=== PATIENT | female | born 1950 | race Caucasian/White ===

== ENCOUNTER 2024-06-25 09:39 | Inpatient (IN) | payer MEDICARE, SELFPAY ==
[2024-06-25] VITALS (17 sets, daily range): BP systolic 115–137; BP diastolic 56–76; PULSE 65–82; RESP 16–22; TEMP 36.2–36.7; O2SAT 87–98; BMI 31.9; BMI 28.0
--- NOTE | 2024-06-25 09:48 | EX.ED.DYSGE1 ---
HPI History of Present Illness Chief Complaint: General Illness Detail of Chief Complaint: Has not felt well since Friday Informant: patient and family (Daughter is the primary informant.) Limited: other (Patient is pale appears ill and a poor informant) Onset/Context/Timing Onset: Days Context: Sudden Onset Timing: Continuous and Waxes and wanes Quality: Weakness, productive cough, rattling in her chest, decreased p.o. intake Location: Primarily respiratory Current Severity: Moderate Maximum Severity: Severe Worsened by: Nothing Relieved by: Nothing Associated Symptoms Associated Symptoms: Decreased urine output and not feeling Narrative Narrative: Patient is a 74-year-old woman. She is a poor informant. She has not seen a doctor in 5+ years. She is present no medication. She has no allergies. Her last visit was at an urgent care for COVID-19. She has had low-grade fever. She denies headache, visual, ocular auditory symptoms. She does endorse congestion, postnasal and sore throat. She does have a cough that is productive of thick green sputum. She has no history of asthma or COPD. She has never smoked. She denies abdominal pain, nausea, vomiting or diarrhea. She denies urologic symptoms i.e. dysuria, frequency, urgency or hematuria. Daughter reports decreased urine output. Patient was assisted to the bed because of weakness. She denies ill contacts. She denies any rash or skin lesions. Prior similar symptoms: No Recent Illness/Hospitalization: No PFSH PFSH Medical History no medical history no medical history Home Medications ?Medication ?Instructions ?Recorded ?Last Taken ?Type NK 06/25/24 Unknown History Allergy/AdvReac Type Severity Reaction Status Date / Time No Known Allergies Allergy Verified 04/03/23 07:56 Family History no significant family his Surgical History no surgical history Social History Smoking Status: Never smoker ROS ROS ED Constitutional Constitutional ED: Reports chills, fever(s), subjective and sweats Eyes Eyes: Denies blurry vision or change in vision ENT ENT ED: Reports rhinorrhea and sore throat; Denies ear pain Cardiovascular Cardiovascular: Denies chest pain, orthopnea, palpitations, paroxysmal nocturnal dyspnea or racing heartbeat Respiratory/Chest Respiratory/Chest: Reports cough, dyspnea, sputum and other Details: Rattling in her chest worse when she is supine. Specifically denied orthopnea. ; Denies dyspnea on exertion, orthopnea or paroxysmal nocturnal dyspnea Gastrointestinal Gastrointestinal: Denies abdominal pain, diarrhea, melena, nausea or vomiting Genitourinary Genitourinary ED: Denies dysuria, hematuria or urinary frequency Musculoskeletal Musculoskeletal: Reports arthralgias and myalgias Integumentary Denies rash Neurologic Neurologic: Reports weakness; Denies headache(s) or paresthesias Endocrine Endocrinology: Denies cold intolerance or heat intolerance Hematologic/Lymphatic Hematologic/Lymphatic: Reports systems reviewed and no addt'l complaints, except as documented EXAM Physical Exam Const Vital Signs: 06/25/24 09:39 06/25/24 09:46 06/25/24 10:03 Temperature 98 F Temperature Source Oral Pulse Rate 75 74 Respiratory Rate 20 H 16 Respiratory Effort Normal Respiratory Pattern Normal Normal Blood Pressure 137/76 H Blood Pressure Mean 96 Pulse Ox 93 Oxygen Delivery Method Room Air Oxygen Flow Rate (L/min) 06/25/24 10:40 06/25/24 11:02 06/25/24 11:38 Temperature Temperature Source Pulse Rate 65 Respiratory Rate 22 H Respiratory Effort Respiratory Pattern Blood Pressure 115/56 L Blood Pressure Mean 75 Pulse Ox 88 96 87 Oxygen Delivery Method Room Air Room Air Oxygen Flow Rate (L/min) 06/25/24 11:38 06/25/24 11:53 06/25/24 13:04 Temperature Temperature Source Pulse Rate 82 Respiratory Rate 16 Respiratory Effort Respiratory Pattern Blood Pressure 132/65 H Blood Pressure Mean 87 Pulse Ox 93 97 96 Oxygen Delivery Method Nasal Cannula Nasal Cannula Nasal Cannula Oxygen Flow Rate (L/min) 2 2 2 06/25/24 13:22 Temperature Temperature Source Pulse Rate 80 Respiratory Rate 16 Respiratory Effort Respiratory Pattern Blood Pressure 135/59 H Blood Pressure Mean 84 Pulse Ox 97 Oxygen Delivery Method Nasal Cannula Oxygen Flow Rate (L/min) 2 Positive well nourished and well developed Constitutional Narrative: Patient appears ill. She is pale. Skin is diaphoretic. It is raining outside. General Appearance ED: well developed and pallor HEENT Reports dry mucous membranes HEENT Narrative: Head is atraumatic, cephalic. Ears normal. Nares patent. There is clear discharge. Posterior pharynx is normal. Uvula is midline. There is no deviation of protrusion. Mouth ED: Yes dry mucous membranes Mouth: dry mucous membranes Eyes PERRL and EOMs intact bilaterally General Eye ED: Negative for pale conjunctiva or scleral icterus Neck no lymphadenopathy, supple and no JVD Neck Narrative: Trachea is midline. There is no cervical lymphadenopathy. There is no stridor. Chest Wall palpation of chest normal Resp normal respiratory effort and No clear to auscultation bilaterally Auscultation: rales bilateral lower (Right greater than left. There is egophony bilaterally.) Cardio regular rate, regular rhythm, S1 normal heart sound, S2 normal heart sound and no murmurs GI normal to inspection, nondistended, normoactive bowel sounds, non-tender, non-distended and no masses; Negative for hepatosplenomegaly Auscultation: hypoactive bowel sounds Palpation: soft Back/Spine no CVA tenderness Extremity normal to inspection General Extremety ED: Negative for edema or tenderness General Extremity: Negative for edema Neuro oriented x3, CN's II-XII intact bilaterally and no sensory deficits noted Neuro Narrative: Patient is awake. Sensorium / Orientation: Negative for alert Motor Exam: strength 5/5 throughout Psych mental status grossly normal Skin no rashes or lesions noted, no wounds and skin turgor normal General Skin Exam: pallor; Negative for jaundice MDM MDM MDM Narrative Medical decision making narrative: Differential diagnosis would include viral upper respiratory infection with bronchospasm, clinically patient has pneumonia, clinically she is dehydrated. Will obtain appropriate blood work to assess for endorgan dysfunction, chest x-ray to determine if she does have pneumonia or not radiologically. Since she clinically appears dehydrated and daughter reports poor p.o. intake with decreased urine output 1 L of normal saline was ordered. Because of the rhonchi and wheezing noted albuterol was ordered. There are no old records for review. The only record available is for a urgent care visit. She was diagnosed at that time with COVID-19. History & Record Review Additional record(s) reviewed:: Prior outpatient record (Diagnosed with COVID-21 April 2023 at urgent care.) and No prior records (There are no old records since patient does not go to the doctor) Lab Data Attestation: I reviewed the patient's lab results. Lab results narrative: CBC is unremarkable. Competence of metabolic panel is remarkable for hyponatremia and hypochloremia. Patient's CO2 is normal with an elevated anion gap. Lactate is upper end of normal. BUN to creatinine ratio is elevated at 21-1. Glucose is elevated to 98. Since patient is on no medication with hyponatremia we will obtain urine osmolarity and serum osmolarity as well as TSH and cortisol level. Labs: Laboratory Results - last 24 hr 06/25/24 06/25/24 09:51 09:57 WBC 4.6 RBC 4.73 Hgb 14.4 Hct 41.3 MCV 87.3 MCH 30.4 MCHC 34.9 RDW Std Deviation 38.6 RDW Coeff of Black 12.0 Plt Count 131 L MPV 12.5 H Immature Gran % (Auto) 0.400 Neut % (Auto) 57.9 Lymph % (Auto) 26.9 [place] % (Auto) 13.9 H Eos % (Auto) 0.2 Baso % (Auto) 0.7 Absolute Neuts (auto) 2.7 Absolute Lymphs (auto) 1.24 Nucleated RBC % 0 Sodium 129 L Potassium 3.7 Chloride 90 L Carbon Dioxide 22.5 Anion Gap 16 H BUN 16 Creatinine 0.75 Estim Creat Clear Calc 71.75 Est GFR (MDRD) Non-Af 85 BUN/Creatinine Ratio 21.4 H Glucose 298 H Lactic Acid 2.0 Calcium 9.6 Total Bilirubin 0.76 AST 41 H ALT 35 Alkaline Phosphatase 89 Total Protein 7.2 Albumin 4.1 Globulin 3.1 Albumin/Globulin Ratio 1.3 Radiography Chest X-Ray - ED: 2 View and Read by ED Physician (Cardiac silhouette and size normal. There is no infiltrate, effusion noted. There is no evidence of heart failure. Hilum is unremarkable. Osseous structures reveal chronic changes.) Diagnostic Testing: Clinical Impression(s) from Imaging Studies Chest X-Ray 06/25/24 10:15 IMPRESSION: NO ACUTE FINDINGS. Reading Location: [facility]- Management Discussion w/another healthcare provider: Hospitalist (Spoke with hospitalist, Dr. Rosa Maria Bell. She will see the patient in the emergency room. Full admit MedSurg. Clinically patient has pneumonia. She reviewed my orders and note. Plan is full admission.) Treatment and Re-Evaluation :: Oxygen was discontinued. Patient's pulse ox went to 87% on room air. On reexamination she has more rhonchi and wheezing noted. Additional aerosol treatments were ordered as well as prednisone. (2285) Comments:: Oxygen was removed prior to ambulation. Was 89%. Nurses put her back on the oxygen and then ambulated to her. She did not desaturate with oxygen. Since patient is still wheezing is hypoxic will call hospitalist for admission. Since she does have a productive cough and does not meet criteria for sepsis we will treat with oral antibiotics. Will order doxycycline which will cover both typical and atypical organisms. Discharge Plan Triage Chief Complaint: General Illness ED Provider: Jett Quispe Dx/Rx/DC Orders Clinical Impression: Pneumonia, Acute bronchospasm, Acute hyponatremia, Elevated blood-pressure reading without diagnosis of hypertension Prescriptions: No Action NK Primary Care Provider: Care Physician,No Primary Referrals: Care Physician,No Primary [Primary Care Provider] - Print Language: Telugu Disposition Disposition: Acute Care [facility]
[2024-06-25] MEDS: Albuterol 2.5 MG/3 ML VIAL.NEB. INHALATION ×4 (10:04→11:51)
[2024-06-25 10:10] LABS: Absolute Lymphocyte Count 1.24 X10^3/uL (0.83-4.51); Absolute Neutrophil Count 2.7 X10^3/uL (2.0-7.7); Basophil# 0.03 X10^3/uL; Basophil% 0.7 % (0-1); Eosinophil# 0.01 X10^3/uL; Eosinophils% 0.2 % (0-5); Hematocrit 41.3 % (37-47); Hemoglobin 14.4 g/dL (12.0-15.0); Lymphocyte # 1.24 X10^3/ul (0.83-4.51); Lymphocyte % 26.9 % (19-41); Mean Corp Hgb Conc 34.9 g/dL (32-36); Mean Corpuscular Hgb 30.4 pg (27.0-32.0); Mean Corpuscular Volume 87.3 fL (81-99); Mean Platelet Vol. 12.5 fl (6.2-12.0); Monocyte# 0.64 X10^3/uL; Monocyte% 13.9 % (0-10); NRBC Flagged by Analyzer 0 % (0-5); Neutrophil # 2.67 X10^3/uL (2.7-7.7); Neutrophil % 57.9 % (47-70); Platelet Count 131 K/mm3 (150-450); RBC Distribution Width SD 38.6 fl (35.1-43.9); Red Blood Count 4.73 M/mm3 (4.2-5.4); White Blood Count 4.6 K/mm3 (4.4-11.0)
--- NOTE | 2024-06-25 10:15 | RAD_ITS ---
PROCEDURE: CHEST PA AND LATERAL 06/25/2024 REASON FOR EXAM: PRODUCTIVE COUGH, RALES RIGHT GREATER THAN LEFT, E TECHNIQUE: Frontal and lateral views of the chest. COMPARISON: None FINDINGS: Hardware: EKG electrodes are seen. Heart: The heart size is normal. Mediastinum: The mediastinal contour is unremarkable. Lungs: The lungs are clear. Bones: The bones are unremarkable. RAD/Chest PA and Lateral IMPRESSION: NO ACUTE FINDINGS. Reading Location: [place] [id number]
[2024-06-25 10:33] LABS: ALB/GLOB Ratio 1.3 RATIO (0.9-2.4); AST(SGOT) 41 U/L (<=31); Alanine Aminotransfer ALT/SGPT 35 U/L (<=34); Albumin, Serum 4.1 g/dL (3.4-4.8); Alkaline Phosphatase 89 U/L (35-104); Anion Gap 16 (5-15); BUN 16 mg/dL (4-19); BUN/Creat Ratio 21.4 RATIO (10-20); Calcium,Total 9.6 mg/dL (7.6-11.0); Carbon Dioxide 22.5 mmol/L (21.0-32.0); Chloride 90 mmol/L (98-108); Creatinine, Serum 0.75 mg/dL (0.70-1.20); EST Glomerular Filtration Rate 85 (>60); Estimated Creatinine Clearance 71.75 ml/min (50-250); Globulin 3.1 g/dL (2.2-4.2); Glucose 298 mg/dL (70-99); Potassium 3.7 mmol/L (3.3-5.1); Protein, Total 7.2 g/dL (5.9-8.4); Sodium Level 129 mmol/L (133-145); Total Bilirubin 0.76 mg/dL (0.00-1.30)
[2024-06-25] MEDS: 0.9% Normal Saline (1000mL) 1,000 ML 1000 ML IV (11:09)
--- NOTE | 2024-06-25 11:20 | CM.ED ---
Social work Reason for referral: no PCP Referral source: case find This SW identified patient's lack of a PCP and need for resources. This SW entered patient's room, introducing self and role at [facility]. Patient was observed being asleep in bed, but patient's daughter, Mariana, was bedside. Mariana reported patient not going to a doctor due to being stubborn and Mariana stated knowing patient would need to come to the ED today when it took an hour for Mariana to help patient shower, get dressed, and get to Mariana's car. Mariaan stated patient is a hard worker and not many things get her down. Mariana accepted resources of [facility] Provider Directory and [facility] information on patient's behalf. No further needs identified at this time. Deana Mills, NUCLEAR WASTE MANAGEMENT ENGINEER, [employer] SAL[employer]ATE
[2024-06-25] MEDS: predniSONE 20 MG Tablet 60 MG PO (11:48)
[2024-06-25] MEDS: Doxycycline 100 MG CAPSULE PO ×2 (13:33→22:06)
--- NOTE | 2024-06-25 13:44 | HP.PCM.HOS_ITS ---
HPI - General General Date of Admission: 06/25/24 Date of Service: 06/25/24 Chief Complaint: Cough, generalized weakness HPI Narrative ILIA CLAUDIO, is a 74-year-old female presented to [facility] ED 06/25/2024 due to weakness, productive cough, decreased p.o. intake since Friday. Patient takes no medications and has not seen a doctor in over 5 years. Reports cough with thick green sputum and daughter reports decreased urine output. Patient noted to be 88% on room air in the ED and was placed on 2 L nasal cannula. Patient otherwise vitally stable. CBC unremarkable and CMP with sodium of 129 and chloride of 90 as well as a glucose of 298. Chest x-ray with no acute process however patient clinically with pneumonia. Attempt was made to take patient off of oxygen she dropped to 87% so oxygen was replaced and she was given a DuoNeb treatment and prednisone as well as doxycycline. Hospitalist contacted for admission. Patient evaluated at bedside with daughter present. Patient and daughter report that on Friday she was just kind of generally not feeling well and then on Friday she felt very achy and weak and pretty much stayed in bed and has remained in bed for the past 3 days because she is so achy and weak, today she has been having productive cough, does not necessarily note shortness of breath but has also not been up and moving around much, poor p.o. intake, denies any nausea or belly pain, no diarrhea or changes in urination. No chest pain. No temperatures above 99.4 at home. PFSH Medical History no medical history Home Medications ?Medication ?Instructions ?Recorded ?Last Taken ?Type NK 06/25/24 Unknown History Allergy/AdvReac Type Severity Reaction Status Date / Time No Known Allergies Allergy Verified 04/03/23 07:56 Family History no significant family his Surgical History no surgical history Social History Smoking Status: Never smoker ROS ROS Narrative General: Highest temp 99.4, generally achy and weak HENT: Denies headache, denies stuffy nose, denies sore throat EYES: Denies changes in vision Resp: Productive cough x 1 day, denies shortness of breath Cardiac: Denies chest pain GI: Denies abdominal pain, denies changes in bowel, denies nausea/vomiting : Denies changes in urination Extremity: Denies swelling MSK: Generalized weakness Neuro: Denies any numbness/tingling Heme: Denies any bleeding or bruising Skin: Denies rashes Psychiatric: No complaints voiced Vital Signs Vital Signs Vital Signs: 06/25/24 09:39 06/25/24 09:46 06/25/24 10:03 Temperature 98 F Temperature Source Oral Pulse Rate 75 74 Respiratory Rate 20 H 16 Respiratory Effort Normal Respiratory Pattern Normal Normal Blood Pressure 137/76 H Blood Pressure Mean 96 Pulse Ox 93 Oxygen Delivery Method Room Air Oxygen Flow Rate (L/min) 06/25/24 10:40 06/25/24 11:02 06/25/24 11:38 Temperature Temperature Source Pulse Rate 65 Respiratory Rate 22 H Respiratory Effort Respiratory Pattern Blood Pressure 115/56 L Blood Pressure Mean 75 Pulse Ox 88 96 87 Oxygen Delivery Method Room Air Room Air Oxygen Flow Rate (L/min) 06/25/24 11:38 06/25/24 11:53 06/25/24 13:04 Temperature Temperature Source Pulse Rate 82 Respiratory Rate 16 Respiratory Effort Respiratory Pattern Blood Pressure 132/65 H Blood Pressure Mean 87 Pulse Ox 93 97 96 Oxygen Delivery Method Nasal Cannula Nasal Cannula Nasal Cannula Oxygen Flow Rate (L/min) 2 2 2 06/25/24 13:22 06/25/24 13:35 Temperature 98.1 F Temperature Source Pulse Rate 80 75 Respiratory Rate 16 16 Respiratory Effort Respiratory Pattern Blood Pressure 135/59 H 135/59 H Blood Pressure Mean 84 84 Pulse Ox 97 95 Oxygen Delivery Method Nasal Cannula Oxygen Flow Rate (L/min) 2 Weight Weight: 89.811 kg Body Mass Index (BMI) 31.9 Physical Exam Narrative General: Alert, oriented, no apparent distress HEENT: Atraumatic, normocephalic Eyes: Anicteric, normal conjunctiva, extraocular movements grossly intact Neck: Supple Respiratory: Patient coarse bilaterally much more prominent on left side compared to right, normal respiratory effort Cardiovascular: Regular rate and rhythm GI: Soft, nontender, nondistended Extremities: No edema Musculoskeletal: Moving all extremities Neuro: No overt focal neurological deficits Skin: No rashes appreciated Psych: Cooperative Results Lab / Micro Data 06/25/24 09:51 06/25/24 09:51 Labs: Laboratory Results - last 24 hr 06/25/24 09:51: WBC 4.6, RBC 4.73, Hgb 14.4, Hct 41.3, MCV 87.3, MCH 30.4, MCHC 34.9, RDW Std Deviation 38.6, RDW Coeff of Black 12.0, Plt Count 131 L, MPV 12.5 H , Immature Gran % (Auto) 0.400, Neut % (Auto) 57.9, Lymph % (Auto) 26.9, [place] % (Auto) 13.9 H, Eos % (Auto) 0.2, Baso % (Auto) 0.7, Absolute Neuts (auto) 2.7, Absolute Lymphs (auto) 1.24, Nucleated RBC % 0, Sodium 129 L, Potassium 3.7, C hloride 90 L, Carbon Dioxide 22.5, Anion Gap 16 H, BUN 16, Creatinine 0.75, Estim Creat Clear Calc 71.75, Est GFR (MDRD) Non-Af 85, BUN/Creatinine Ratio 21.4 H, Glucose 298 H, Calcium 9.6, Total Bilirubin 0.76, AST 41 H, ALT 35, Alkaline Phosphatase 89, Total Protein 7.2, Albumin 4.1, Globulin 3.1, Albumin/Globulin Ratio 1.3 06/25/24 09:57: Lactic Acid 2.0, TSH 2.490, Cortisol AM Sample 51.90 H Micro: Microbiology 06/25/24 09:57 Mucosa - Nose SARS-CoV-2, Influenza & RSV (PCR) - Final Imaging Radiology Impression Chest X-Ray 06/25/24 10:15 IMPRESSION: NO ACUTE FINDINGS. Reading Location: [facility] Assessment & Plan Assessment/Plan (1) Acute bronchospasm: PLAN: Plan # Hypoxia secondary to bronchospasm with acute bronchitis -Patient hypoxic on presentation down to 88 and 87% requiring O2 -Patient has no history of COPD or smoking that would suggest this is a COPD exacerbation - Chest x-ray read with no acute process but patient does have significant cough with purulent sputum and wheezes and rhonchi on exam -DuoNebs and as needed albuterol -Sputum culture if able, COVID negative, respiratory panel ordered -Robitussin as needed, I/S - Doxycycline was started in the ED due to patient's significant cough and hypoxia, will continue at this time # hyponatremia and hypochloremia - patient clinically dehydrated and has had very poor p.o. intake and generalized weakness, suspect the above is due to dehydration - IV fluids - if no improvement may need further workup # hyperglycemia - no known history of diabetes that she is aware of -Consistent carb?calorie controlled diet - glucose checks and sliding scale insulin - A1c in a.m. #DVT ppx: Lovenox subcu Rosa Maria Bell MD Charges/Coding Visit Charges Inpatient E&M: 21776 Init Hosp L2
[2024-06-25 14:00] LABS: Reflex Lactate? Y
[2024-06-25 14:19] LABS: Osmolality, Urine 793 mOsm/KG
[2024-06-25 14:19] LABS: Osmolality, Serum 292 mOsm/KG (280-301)
[2024-06-25 14:49] LABS: Lactic Acid 2.4 mmol/L (0.0-2.0)
--- NOTE | 2024-06-25 14:49 | NURSING ---
NOTED OF LAB CALL OF LACTIC ACID OF 2.4
[2024-06-25] MEDS: 0.9% Normal Saline (500mL Bag) 500 ML 999 ML IV (15:21)
[2024-06-25] MEDS: 0.9% Normal Saline (1000mL) 1,000 ML 75 ML IV (16:31)
[2024-06-25] MEDS: Insulin Lispro 100 UNIT/ML INSULN.PEN SC ×2 (16:44→22:06)
[2024-06-25 16:59] LABS: Bedside Glucose 265 mg/dL (74-106)
[2024-06-25] MEDS: Ipratropium/Albuterol Sulfate 3 ML AMPUL.NEB INHALATION (19:20)
[2024-06-25 23:26] LABS: Bedside Glucose 293 mg/dL (74-106)
[2024-06-26] VITALS (8 sets, daily range): BP systolic 116–143; BP diastolic 56–78; PULSE 64–88; RESP 16–18; TEMP 36.4–36.8; O2SAT 95–99
[2024-06-26 04:23] LABS: Absolute Lymphocyte Count 1.01 X10^3/uL (0.83-4.51); Absolute Neutrophil Count 3.6 X10^3/uL (2.0-7.7); Basophil# 0.01 X10^3/uL; Basophil% 0.2 % (0-1); Hematocrit 35.6 % (37-47); Hemoglobin 12.5 g/dL (12.0-15.0); Lymphocyte # 1.01 X10^3/ul (0.83-4.51); Lymphocyte % 20.3 % (19-41); Mean Corp Hgb Conc 35.1 g/dL (32-36); Mean Corpuscular Hgb 29.9 pg (27.0-32.0); Mean Corpuscular Volume 85.2 fL (81-99); Mean Platelet Vol. 12.5 fl (6.2-12.0); Monocyte# 0.36 X10^3/uL; Monocyte% 7.2 % (0-10); NRBC Flagged by Analyzer 0 % (0-5); Neutrophil # 3.58 X10^3/uL (2.7-7.7); Neutrophil % 71.9 % (47-70); Platelet Count 131 K/mm3 (150-450); RBC Distribution Width SD 37.1 fl (35.1-43.9); Red Blood Count 4.18 M/mm3 (4.2-5.4)
[2024-06-26 05:28] LABS: Anion Gap 14 (5-15); BUN 15 mg/dL (4-19); BUN/Creat Ratio 30.4 RATIO (10-20); Calcium,Total 9.4 mg/dL (7.6-11.0); Carbon Dioxide 21.1 mmol/L (21.0-32.0); Chloride 99 mmol/L (98-108); Creatinine, Serum 0.49 mg/dL (0.70-1.20); EST Glomerular Filtration Rate 100 (>60); Estimated Creatinine Clearance 67.33 ml/min (50-250); Glucose 248 mg/dL (70-99); Potassium 3.7 mmol/L (3.3-5.1); Sodium Level 135 mmol/L (133-145)
[2024-06-26] MEDS: Insulin Lispro 100 UNIT/ML INSULN.PEN SC ×4 (06:45→22:16)
[2024-06-26 07:06] LABS: Bedside Glucose 237 mg/dL (74-106)
[2024-06-26] MEDS: Ipratropium/Albuterol Sulfate 3 ML AMPUL.NEB INHALATION ×2 (07:19→13:07)
--- NOTE | 2024-06-26 07:31 | PCM.PN.HOSP ---
Reason for Visit Reason for Visit: Cough/generalized weakness Subjective Subjective Patient states overall she is feeling better. We discussed her findings with regards to her hemoglobin A1c and her being diabetic. She does state that she has a family members with diabetes in her grandparents. There is no awareness if her parents were diabetic or not. She is somewhat familiar with diabetes as her is diabetic. We did discuss in general terms diet and exercise as well as her need for insulin use at home. Nursing is to instruct patient insulin use. I did inform the patient the dietitian will be in to further discuss. While the patient was a lifelong non-smoker she had considerable secondhand smoke exposure. Objective Data Objective Data Vital Signs: Vital Signs Temp Pulse Resp BP Pulse Ox O2 Del Method O2 Flow Rate 97.5 F L 68 18 116/71 99 Nasal Cannula 2 06/26/24 02:30 06/26/24 07:20 06/26/24 07:20 06/26/24 02:30 06/26/24 07:20 06/26/24 07:20 06/26/24 02:30 FiO2 1 06/26/24 07:20 Oxygen Flow Rate (L/min) 2 Oxygen Delivery Method Nasal Cannula Weight: 78.8 kg Body Mass Index (BMI) 28.0 Intake & Output: Intake and Output for Last 24 Hours 06/24/24 06/25/24 06/26/24 23:59 23:59 23:59 Intake Total 1500 / 1500 1000 / 1000 Balance 1500 / 1500 1000 / 1000 Lab / Micro Data 06/26/24 04:06 06/26/24 04:06 Labs: Laboratory Results - last 24 hr 06/25/24 09:51: WBC 4.6, RBC 4.73, Hgb 14.4, Hct 41.3, MCV 87.3, MCH 30.4, MCHC 34.9, RDW Std Deviation 38.6, RDW Coeff of Black 12.0, Plt Count 131 L, MPV 12.5 H, Immature Gran % (Auto) 0.400, Neut % (Auto) 57.9, Lymph % (Auto) 26.9, [place] % (Auto) 13.9 H, Eos % (Auto) 0.2, Baso % (Auto) 0.7, Absolute Neuts (auto) 2.7, Absolute Lymphs (auto) 1.24, Nucleated RBC % 0, Sodium 129 L, Potassium 3.7, Chloride 90 L, Carbon Dioxide 22.5, Anion Gap 16 H, BUN 16, Creatinine 0.75, Estim Creat Clear Calc 71.75, Est GFR (MDRD) Non-Af 85, BUN/Creatinine Ratio 21.4 H, Glucose 298 H, Calcium 9.6, Total Bilirubin 0.76, AST 41 H, ALT 35, Alkaline Phosphatase 89, Total Protein 7.2, Albumin 4.1, Globulin 3.1, Albumin/Globulin Ratio 1.3 06/25/24 09:57: Lactic Acid 2.0, TSH 2.490, Cortisol AM Sample 51.90 H 06/25/24 13:04: Serum Osmolality 292 06/25/24 13:05: Urine Osmolality 793 06/25/24 14:10: Lactic Acid 2.4 H* 06/25/24 16:33: POC Glucose 265 H 06/25/24 22:04: POC Glucose 293 H 06/26/24 04:06: WBC 5.0, RBC 4.18 L, Hgb 12.5, Hct 35.6 L, MCV 85.2, MCH 29.9, MCHC 35.1, RDW Std Deviation 37.1, RDW Coeff of Black 12.0, Plt Count 131 L, MPV 12.5 H, Immature Gran % (Auto) 0.400, Neut % (Auto) 71.9 H, Lymph % (Auto) 20.3, [place] % (Auto) 7.2, Eos % (Auto) 0.0, Baso % (Auto) 0.2, Absolute Neuts (auto) 3.6, Absolute Lymphs (auto) 1.01, Nucleated RBC % 0, Sodium 135, Potassium 3.7, Chloride 99, Carbon Dioxide 21.1, Anion Gap 14, BUN 15, Creatinine 0.49 L, Estim Creat Clear Calc 67.33, Est GFR (MDRD) Non-Af 100, BUN/Creatinine Ratio 30.4 H, Glucose 248 H, Calcium 9.4 06/26/24 06:44: POC Glucose 237 H Micro: Microbiology 06/25/24 17:09 Mucosa - Nasopharyngeal Respiratory Panel (PCR) - Final Influenzae B Parainfluenza 3 06/25/24 09:57 Mucosa - Nose SARS-CoV-2, Influenza & RSV (PCR) - Final Radiography Diagnostic Testing: Radiology Impression Chest X-Ray 06/25/24 10:15 IMPRESSION: NO ACUTE FINDINGS. Reading Location: [facility] Physical Exam Const alert, oriented x3, no apparent distress and well nourished; Negative for average body habitus Constitutional Narrative: Overweight, older, white female, sitting up in bed, daughter at bedside, patient appears comfortable and nontoxic HEENT head/scalp atraumatic, moist oral mucous membranes and oropharynx normal HEENT Narrative: Mallampati 2-3, no thrush Eyes EOMs intact bilaterally and conjunctivae normal Eyes Narrative: No scleral icterus Neck supple Neck Narrative: Trachea midline Resp normal respiratory effort and no retractions Resp Narrative: Scattered faint coarse breath sounds with few scattered and expiratory wheezes Cardio regular rate, regular rhythm, S1 normal heart sound, S2 normal heart sound, no murmurs, no rub, no gallops and no clicks GI normal to inspection, nondistended, normoactive bowel sounds, soft to palpation and non-tender Extremity no clubbing, cyanosis or edema Extremity Narrative: Pedal and radial pulses are 2+ Skin skin turgor normal, no jaundice, no petechiae and no mottling Neuro oriented x3, moves all extremities and no focal motor deficits Psych affect normal Psych Narrative: Very pleasant, eye contact is good and patient interacts appropriately Assessment & Plan Assessment/Plan (1) Acute hyponatremia: (2) Hypoxia: (3) Diabetes mellitus, type 2: (4) Viral pneumonia: (5) Influenza B: (6) Parainfluenza infection: (7) Lactic acidosis: (8) Hyperglycemia: PLAN: Plan Acute hypoxia secondary to influenza B/parainfluenza 3 viral pneumonia - Will discontinue antibiotics now that viral panel is positive - Start Mucinex 1200 p.o. twice daily - Continue scheduled and as needed nebulizers - Continue oral prednisone - Continue antitussives - Continue spirometry - Add Pep therapy - Sputum culture ordered if patient able to produce - Current oxygen saturations are 99% on 1 L nasal cannula - Will need to check ambulatory pulse ox prior to discharge - Depending on how she does clinically throughout the day today could consider discharge home tomorrow Acute hyponatremia/hypochloremia - Resolved New diagnosis of DM-2 - Patient appears to be diabetic -Hemoglobin A1c was 11.2 and she is on no medications - Will add Lantus 15 units daily - Continue sliding scale but changed to high-dose - Consult for diabetic education - Continue carb controlled diet - Accu-Cheks as ordered - Will likely start metformin at discharge - Recommend referral to endocrinology at discharge - If blood pressure will tolerate will add low-dose SADE inhibitor for renal protection Lactic acidosis - Suspect related to #1 and dehydration - No further workup needed at this time Elevated cortisol level - Unclear what this means given the fact she is acutely ill - Would recommend outpatient follow-up as she may have hypercortisolism - Will refer to endocrinology at discharge DVT prophylaxis - Continue enoxaparin as ordered CODE STATUS - Full code Charges/Coding Visit Charges Inpatient E&M: 28525 Subs Hosp L3
[2024-06-26 07:33] LABS: Hemoglobin A1c 11.2 % (<=5.6)
[2024-06-26] MEDS: predniSONE 20 MG Tablet 40 MG PO (09:20)
[2024-06-26] MEDS: Enoxaparin 40 MG/0.4 ML Syringe SC (09:21)
[2024-06-26] MEDS: Insulin Glargine-YFGN 100 UNIT/ML Pen 15 UNIT SC (09:21)
[2024-06-26] MEDS: guaiFENesin 1,200 MG Tablet 1200 MG PO ×2 (09:22→22:22)
--- NOTE | 2024-06-26 11:30 | CASEMGMT ---
RN CM Face to Face with patient for initial transition planning/care coordination assessment. RN CM introduced self and role at [facility]. Patient sitting in chair, alert and oriented. Patient willing to participate in assessment and is able to answer all questions appropriately. Care providers, pharmacy, and demographics verified. Strata: 1 PCP: No PCP, list provided in ED Specialists: none Preferred Pharmacy: [facility] Insurance: [facility] Prescription Benefit: yes Living Will/HPOA: yes, daughter Mariana Galeana LNOK: , son, daughter Living Arrangements: Patient lives with and son in 2 story home. Patient is independent and able to ambulate stairs. Transportation: self, DME/HHC: Patient has access to walker at home. Will need glucometer at discharge. Script on chart to be provided at discharge. Patient wishes to discharge home, denies need for home health at this time. Patient states she has no further needs or concerns at this time. CM to follow for discharge planning needs that may arise. Disposition Plan: Patient to discharge home with family support and follow-up plans in place. Mirlande COLLINS, RN, CM
[2024-06-26 11:48] LABS: Bedside Glucose 212 mg/dL (74-106)
[2024-06-26 17:01] LABS: Bedside Glucose 282 mg/dL (74-106)
[2024-06-26] MEDS: 0.9% Saline Lock 10 ML Syringe IV (22:15)
[2024-06-26 22:56] LABS: Bedside Glucose 300 mg/dL (74-106)
[2024-06-27 02:08] VITALS: BP 134/79; PULSE 63; RESP 16; TEMP 36.8; O2SAT 94
[2024-06-27] MEDS: Insulin Lispro 100 UNIT/ML INSULN.PEN SC ×2 (06:27→10:42)
[2024-06-27] MEDS: Ipratropium/Albuterol Sulfate 3 ML AMPUL.NEB INHALATION (06:32)
[2024-06-27 06:33] VITALS: PULSE 65; RESP 16; O2SAT 99
[2024-06-27 06:47] LABS: Bedside Glucose 173 mg/dL (74-106)
--- NOTE | 2024-06-27 06:58 | DS.PCM_ITS ---
Providers Date of Admission: 06/25/24 Date of Discharge: 06/27/24 Primary Care Physician: No Primary Care Phys Reason For Visit: HYPOXIA AND PRODUCTIVE COUGH Diagnosis Discharge Diagnosis (1) Acute hyponatremia: Status: Acute Code(s): E87.1 - Hypo-osmolality and hyponatremia (2) Hypoxia: Status: Acute Code(s): R09.02 - Hypoxemia (3) Diabetes mellitus, type 2: Status: Acute Code(s): E11.9 - Type 2 diabetes mellitus without complications (4) Viral pneumonia: Status: Acute Code(s): J12.9 - Viral pneumonia, unspecified (5) Influenza B: Status: Acute Code(s): J10.1 - Influenza due to other identified influenza virus with other respiratory manifestations (6) Parainfluenza infection: Status: Acute Code(s): B34.8 - Other viral infections of unspecified site (7) Lactic acidosis: Status: Acute Code(s): E87.20 - Acidosis, unspecified (8) Hyperglycemia: Status: Acute Code(s): R73.9 - Hyperglycemia, unspecified Medications at Discharge Home Medications insulin glargine-yfgn 100 unit/mL (3 mL) subcutaneous pen 15 unit (0.15 mL) subcut DAILY #15 mL 06/27/24 lisinopril 5 mg tablet 5 mg PO DAILY #30 tabs 06/27/24 metformin 1,000 mg tablet 1,000 mg PO BIDCM #60 tabs 06/27/24 pen needle, diabetic 31 gauge x 1/4 #100 ea 06/27/24 prednisone 20 mg tablet 40 mg (2 x 20 mg) PO BREAKFAST #6 tabs 06/27/24 Hospital Course Operations None Procedures EKG and - (Chest x-ray) Summary of Care Provided Minutes Spent on Discharge: 38 Hospital Course: Ms. Galeana is a 74-year-old white female who presented to the emergency department [facility] on 06/25/2024 with a chief complaint of cough and generalized weakness. Patient reported that she had generalized weakness and a productive cough with thick green sputum production. Her daughter also reported she had decreased urinary output. Oxygen saturations on presentation were 80%. She denies any fever or chills. She has not seen a doctor in over 5 years and takes no medications at baseline. Patient daughter reported that on Friday she was just generally not feeling well and then Friday she felt very achy and weak and pretty much stayed in bed all day. She had remained there for the past 3 days prior to presentation because of achiness and weakness and then began having a productive cough. She did not notice any specific shortness of breath but had also not been up moving around much. P.o. intake has been poor. Tmax at home was 99.4. Vital signs on presentation showed temperature of 98, respiratory 75, pulse ox was 20, blood pressure was 137/76 and pulse ox was 93% on room air. CBC on presentation was unremarkable other than thrombocytopenia with a platelet count of 131,000 that was stable throughout her stay. She had no left shift but did have a monocytosis at 13.9%. Chemistry panel showed hyponatremia with a sodium of 129 and this corrected within 24 hours of admission. At discharge it was 139. Utilized was 16 and serum creatinine is normal at 0.75. Blood glucose was found to be 298 patient denies history of diabetes. Lactic acid was 2 and liver functions were normal. TSH was within normal limits. Chest x-ray was unremarkable. EKG showed no acute changes consistent with acute ischemia. Respiratory viral panel was obtained and she tested positive for influenza B and parainfluenza type III. Unclear if she has both viruses or that the influenza B was cross-reactive for the parainfluenza because her rapid COVID/flu/RSV was not positive. An a.m. cortisol was obtained and found to be 51.9. The significance of this is unclear if she was ill at the time it was drawn. It was a random sample done in the a.m. Outpatient follow-up will be required. Given her marked hyperglycemia, on presentation a hemoglobin A1c was obtained and found to be 11.2. She was admitted and treated with supportive care for her viral infection. She was initially placed on antibiotics however this was discontinued when her viral panel came back positive. She did have a dry cough during her hospital course but was not productive of sputum and sputum culture was not able to be obtained. She had no infiltrate on chest x-ray. She was initially quite wheezy on exam and this is resolved. She does not ever have a history of smoking however she has been exposed to a lot of secondhand smoke. With regards to her diabetes. Dietitian was consulted and she was given information with regards to diet and outpatient education. We will have her follow-up with endocrinology and a referral for Dr. Triplett was given to her at the time of discharge. At discharge she was given Lantus 15 units in the morning and placed on metformin twice daily. Side effects of the metformin were described to the patient and we did educate her that if she was having any GI upset related to the metformin she should cut that tablet in half and take 1 in the morning and 1 in the evening and uptitrate as able. She voiced understanding. She was also instructed to cut her insulin to 7 units if she was not able to eat well or had nausea and vomiting related to another illness. Prescription for the insulin and the metformin as well as a prednisone burst for 3 more days and low-dose lisinopril for renal protection in the setting of diabetes were sent to her local pharmacy at discharge. She was also sent with pen needles for her insulin. She was discharged in stable condition on 06/27/2024. Again we have asked her to follow- up with endocrinology as noted above and referred her to the [place] [facility] to see Kyleigh Craven-JAMISON. Discharge diagnoses: Acute hypoxia Influenza B/parainfluenza 3 viral pneumonia Acute hyponatremia Acute hypochloremia Acute hypokalemia New onset DM-2 Elevated cortisol level Lactic acidosis Physical Exam Const alert, oriented x3, no apparent distress, no limitations and well nourished; Negative for average body habitus Constitutional Narrative: Overweight, older, white female, sitting up in bed, daughter at bedside, patient appears comfortable and nontoxic General Appearance: cooperative, comfortable, well kempt and well developed Exam Limitations: no limitations Nutritional Appearance: overweight HEENT normocephalic, head/scalp atraumatic, hearing grossly normal bilaterally, moist oral mucous membranes and oropharynx normal HEENT Narrative: Mallampati 2-3, no thrush Eyes EOMs intact bilaterally and conjunctivae normal Eyes Narrative: No scleral icterus Neck supple Neck Narrative: Trachea midline, no thyroid enlargement Resp normal respiratory effort, no retractions and clear to auscultation bilaterally Auscultation: Negative for rales, rhonchi or wheezes Cardio regular rate, regular rhythm, S1 normal heart sound, S2 normal heart sound, no murmurs, no rub, no gallops and no clicks GI normal to inspection, nondistended, normoactive bowel sounds, soft to palpation and non-tender Extremity no clubbing, cyanosis or edema Extremity Narrative: Pedal and radial pulses are 2+ Skin skin turgor normal, no jaundice, no petechiae and no mottling Neuro oriented x3, moves all extremities and no focal motor deficits Speech: speech normal Psych affect normal Psych Narrative: Very pleasant, eye contact is good and patient interacts appropriately Weight / BMI Weight Weight: 78.8 kg Body Mass Index (BMI) 28.0 ABG / Lab / Microbiology Data 06/26/24 04:06 06/27/24 07:20 Laboratory: Laboratory Results - last 24 hr 06/26/24 11:31: POC Glucose 212 H 06/26/24 16:38: POC Glucose 282 H 06/26/24 22:14: POC Glucose 300 H 06/27/24 06:25: POC Glucose 173 H 06/27/24 07:20: Sodium 139, Potassium 2.7 L*, Chloride 101, Carbon Dioxide 24.8, Anion Gap 13, BUN 17, Creatinine 0.63 L, Estim Creat Clear Calc 67.33, Est GFR (MDRD) Non-Af 94, BUN/Creatinine Ratio 26.5 H, Glucose 167 H, Calcium 9.6 Microbiology: Microbiology 06/25/24 17:09 Mucosa - Nasopharyngeal Respiratory Panel (PCR) - Final Influenzae B Parainfluenza 3 06/25/24 09:57 Mucosa - Nose SARS-CoV-2, Influenza & RSV (PCR) - Final D/C Instructions Discharge Diet: 1800 Calorie Control Diet Discharge Activity: Return to Normal Activity Return to work on: 06/28/24 DC O2, CPAP, BIPAP Needs Home O2 Discharge instructions: No DC home with Oxygen: No Meaningful Use Info Meaningful Use Meaningful Use Diagnoses (Choose all that apply): None applicable Ischemic Stroke Statin Dosing Therapy Reference: STATIN DOSE THERAPY REFERENCE: * Patients > 75 years receive moderate or high dose statin therapy. * Patients 75 years or YOUNGER should receive HIGH intensity statin dose unless contraindicated. You will be required to document reason for non-treatment if statin daily dose does not meet guidelines. HIGH DOSE STATIN THERAPY DAILY Atorvastatin > than or = to 40 mg Rosuvastatin > than or = to 20 mg Amlodipine + Atorvastatin > than or = to 2.5/40 mg Ezetimibe + Simvastatin 10/80 mg Simvastatin 80mg Discharge Plan Admission Admit Date/Time: 06/25/24 13:44 Primary Reason for Your Visit: Cough/generalized weakness Attending Provider: Mona Steve Primary Care Provider: Care Physician,No Primary Consulting Providers: Rosa Maria Bell Instructions Forms: Work Excuse Additional Instructions / Restrictions: 1. You were diagnosed with influenza B and parainfluenza 3 virus. Both attacked the lungs and cause upper respiratory symptoms and cough and are highly contagious. 2. You were diagnosed with diabetes type 2. Your hemoglobin A1c was 11.2. We have started you on insulin 15 units to take in the morning as well as metformin. If metformin is making you nauseated or giving you any GI symptoms feel free to cut the tablet in half and take half in the morning and half at night and then slowly increase to the point where up to 2 tablets daily. This medication will not drop your blood sugars 3. If you are nauseated and vomiting and not eating well, please decrease your basal insulin that is typically 15 units to 7 units to prevent hypoglycemia (low blood sugar) 4. Please follow-up at the diabetes education class as instructed by dietitian 5. Your blood sugars would likely run higher over the next couple days as you finished up your steroids. 6. Please call on Friday to set up an appointment to be seen both by a new primary care physician and by endocrinology Discharge Orders/Prescriptions Prescriptions: New insulin glargine-yfgn 100 unit/mL (3 mL) Insulin Pen 15 unit subcut DAILY Qty: 15 1RF lisinopril 5 mg Tablet 5 mg PO DAILY Qty: 30 0RF metformin 1,000 mg Tablet 1,000 mg PO BIDCM Qty: 60 1RF prednisone 20 mg Tablet 40 mg PO BREAKFAST Qty: 6 0RF (DME) pen needle, diabetic 31 gauge x 1/4 needle See Rx Instructions .Route Qty: 100 1RF Rx Instructions: As directed Referrals / Follow Up: Dhruv Triplett MD [Med Staff - Courtesy Staff] - Care Physician,No Primary [Primary Care Provider] - Kyleigh Craven [facility] [[facility]] - Disposition Disposition (needs filled in before D/C Order can be placed): Home, Self Care Charges/Coding Visit Charges Inpatient E&M: 77912 Disch Hosp >30min
[2024-06-27 07:46] VITALS: O2SAT 94; O2SAT 96
[2024-06-27 08:07] LABS: Anion Gap 13 (5-15); BUN 17 mg/dL (4-19); BUN/Creat Ratio 26.5 RATIO (10-20); Calcium,Total 9.6 mg/dL (7.6-11.0); Carbon Dioxide 24.8 mmol/L (21.0-32.0); Chloride 101 mmol/L (98-108); Creatinine, Serum 0.63 mg/dL (0.70-1.20); EST Glomerular Filtration Rate 94 (>60); Estimated Creatinine Clearance 67.33 ml/min (50-250); Glucose 167 mg/dL (70-99); Potassium 2.7 mmol/L (3.3-5.1); Sodium Level 139 mmol/L (133-145)
[2024-06-27] MEDS: guaiFENesin 1,200 MG Tablet 1200 MG PO (08:13)
[2024-06-27] MEDS: Enoxaparin 40 MG/0.4 ML Syringe SC (08:16)
[2024-06-27] MEDS: predniSONE 20 MG Tablet 40 MG PO (08:16)
[2024-06-27] MEDS: Potassium Chloride Oral Tablet 20 MEQ 60 MEQ PO (08:37)
[2024-06-27 09:00] VITALS: BP 138/66; PULSE 68; RESP 14; TEMP 36.8; TEMP 36.9; O2SAT 95
[2024-06-27] MEDS: Lisinopril 5 MG Tablet PO (10:41)
[2024-06-27] MEDS: Insulin Glargine-YFGN 100 UNIT/ML Pen 15 UNIT SC (10:41)
[2024-06-27 11:11] LABS: Bedside Glucose 195 mg/dL (74-106)
--- NOTE | 2024-06-28 11:20 | PCM.HOSP.N ---
Hospitalist Note Wrote a new prescription for patient. Patient was discharged on Semglee insulin which was not covered by her insurance. Pharmacy did request switch to Lantus. New prescription sent.
== END 2024-06-27 12:52 | disposition home or self-care (01) | DRG 194 ==
LOC: ED 13:45 → MS3 14:07
PROVIDERS: Admitting Provider Internal Medicine; Emergency Provider Emergency Medicine; Referring Provider Internal Medicine; Visit Provider Internal Medicine
DX: J10.08 Influenza due to other identified influenza virus with other specified pneumonia (principal); E87.20 Acidosis, unspecified; E87.1 Hypo-osmolality and hyponatremia; D69.6 Thrombocytopenia, unspecified; E86.0 Dehydration; E11.65 Type 2 diabetes mellitus with hyperglycemia; J12.2 Parainfluenza virus pneumonia; E87.8 Other disorders of electrolyte and fluid balance, not elsewhere classified; E87.6 Hypokalemia; R09.02 Hypoxemia; R79.89 Other specified abnormal findings of blood chemistry; Z77.22 Contact with and (suspected) exposure to environmental tobacco smoke (acute) (chronic)
CPT/HCPCS: 36415; 71046; 80048; 80053; 82533; 82962; 83036; 83605; 83930; 83935; 84443; 85025; 87631; 87633; 94640; 94668; 97802; 99285; A4216

== ENCOUNTER → 2024-07-08 | Outpatient (CLI) | payer MEDICARE, SELFPAY ==
[2024-07-08 16:53] LABS: Absolute Lymphocyte Count 1.76 X10^3/uL (0.83-4.51); Absolute Neutrophil Count 2.8 X10^3/uL (2.0-7.7); Basophil# 0.06 X10^3/uL; Basophil% 1.2 % (0-1); Hematocrit 39.9 % (37-47); Hemoglobin 13.3 g/dL (12.0-15.0); Lymphocyte # 1.76 X10^3/ul (0.83-4.51); Lymphocyte % 34.4 % (19-41); Mean Corp Hgb Conc 33.3 g/dL (32-36); Mean Corpuscular Volume 90.1 fL (81-99); Mean Platelet Vol. 12.8 fl (6.2-12.0); Monocyte# 0.36 X10^3/uL; NRBC Flagged by Analyzer 0 % (0-5); Neutrophil # 2.82 X10^3/uL (2.7-7.7); Platelet Count 166 K/mm3 (150-450); RBC Distribution Width CV 12.8 % (11.6-14.6); RBC Distribution Width SD 42.5 fl (35.1-43.9); Red Blood Count 4.43 M/mm3 (4.2-5.4); White Blood Count 5.1 K/mm3 (4.4-11.0)
[2024-07-08 17:54] LABS: ALB/GLOB Ratio 1.7 RATIO (0.9-2.4); AST(SGOT) 24 U/L (<=31); Alanine Aminotransfer ALT/SGPT 33 U/L (<=34); Albumin, Serum 4.4 g/dL (3.4-4.8); Alkaline Phosphatase 76 U/L (35-104); Anion Gap 11 (5-15); BUN 14 mg/dL (4-19); BUN/Creat Ratio 23.1 RATIO (10-20); Calcium,Total 10.3 mg/dL (7.6-11.0); Carbon Dioxide 24.5 mmol/L (21.0-32.0); Chloride 101 mmol/L (98-108); Creatinine, Serum 0.61 mg/dL (0.70-1.20); EST Glomerular Filtration Rate 95 (>60); Globulin 2.6 g/dL (2.2-4.2); Glucose 95 mg/dL (70-99); Hepatitis C Antibody Nonreactive (Nonreactive); Sodium Level 137 mmol/L (133-145); Total Bilirubin 0.49 mg/dL (0.00-1.30); Vitamin D,25 Hydroxy 16.2 ng/mL (30-100)
== END | disposition home or self-care (01) ==
LOC: LAB 15:17
PROVIDERS: PCP Family Medicine Geriatric Medicine; Referring Provider Family Medicine Geriatric Medicine; Visit Provider Family Medicine Geriatric Medicine
DX: E55.9 Vitamin D deficiency, unspecified (principal); R53.83 Other fatigue; Z13.89 Encounter for screening for other disorder
CPT/HCPCS: 36415; 80053; 82306; 84443; 85025; 86803

== ENCOUNTER → 2024-07-27 | Outpatient (CLI) | payer MEDICARE, SELFPAY ==
--- NOTE | 2024-07-27 07:32 | BI_ITS ---
EXAM: SCRN MAMM (CAD)W/RAYA BILAT DATE: 07/27/2024 CLINICAL HISTORY: F, Age 74 y/o , SCREENING No family history. BREAST CANCER RISK ASSESSMENT: Not assessed. TECHNIQUE: Bilateral screening digital breast tomosynthesis with 2D and 3D images. Computer aided detection. COMPARISON: Prior exam(s) dated prior studies are not available for comparison at this time.. FINDINGS: TISSUE DENSITY: The breast tissue is composed of scattered area of fibroglandular density. Bilateral Breast Mammographic Findings: There is a 3 mm well-defined nodule with calcifications in the upper lateral aspect of the left breast. The patient will be recalled for additional views including compression spot views. BI/SCRN MAMM (CAD)W/RAYA BILAT IMPRESSION: OVERALL FINAL ASSESSMENT: BIRADS 0 Incomplete: Need additional imaging evaluati on and/or prior mammograms for comparison. RECOMMENDATION: Incomplete: Need additional imaging evaluation. A letter with findings and recommendations will be mailed to the patient. Reading Location: [place] [address]
--- NOTE | 2024-07-27 07:42 | BD_ITS ---
PROCEDURE: DEXA BONE DENSITY STUDY 07/27/2024 REASON FOR EXAM: F, age 74 y/o . Postmenopausal. TECHNIQUE: DXA scan of sites with data reported below. REFERENCE LINKS: ISCD Adult Positions COMPARISON: None FINDINGS: BMD and T-SCORES Lumbar spine: 0.772 g/cm2, T-score -2.5 Levels: L1 through L4 Left femoral neck: 0.801 g/cm2, T-score -0.4 Femoral neck comparison data not recommended for monitoring change. Left total hip: 0.886 g/cm2, T-score -0.5 Right femoral neck: 0.759 g/cm2, T-score -0.8 Femoral neck comparison data not recommended for monitoring change. Right total hip: 0.838 g/cm2, T-score -0.9 The World Health Organization has defined the following categories based on bone density: Normal bone density: T-score equal to or greater than -1.0 Osteopenia: T-score between -1.0 and -2.5 Osteoporosis: T-score equal to or less than -2.5 The patient does meet the pharmacological treatment recommendations for prevention of osteoporosis. BD/Dexa Bone Density Study IMPRESSION: OSTEOPOROSIS. Recommend follow-up as clinically warranted. Reading Location: [place] [address]
== END | disposition home or self-care (01) ==
LOC: OPBD 07:31
PROVIDERS: PCP Family Medicine Geriatric Medicine; Referring Provider Family Medicine Geriatric Medicine; Visit Provider Family Medicine Geriatric Medicine
DX: Z12.31 Encounter for screening mammogram for malignant neoplasm of breast (principal); Z78.0 Asymptomatic menopausal state
CPT/HCPCS: 77063; 77067; 77080

== ENCOUNTER → 2024-08-06 | Outpatient (CLI) | payer MEDICARE, SELFPAY ==
--- NOTE | 2024-08-06 13:40 | BI_ITS ---
EXAM: DIAG MAMM W/CAD, UNILAT N/A CLINICAL HISTORY: 74-year-old female presents for left breast finding seen on examination of 07/27/2024. There is no family history of breast cancer. TECHNIQUE: Left diagnostic digital breast tomosynthesis with 2D and 3D images. Computer aided detection. COMPARISON: Prior exam(s) dated 07/27/2024. FINDINGS: TISSUE DENSITY: The breast tissue is composed of scattered area of fibroglandular density. Left breast: Follow-up examination performed of the left breast calcifications seen on examination of 07/27/2024. On the present examination, there is a group of coarse heterogeneous calcifications in the upper slightly outer left breast at anterior depth. BI/DIAG MAMM W/CAD, UNILAT IMPRESSION: Suspicious left breast calcifications. Recommend tissue sampling with stereota ctic/tomosynthesis guided core needle biopsy. OVERALL FINAL ASSESSMENT: BIRADS 4B SUSPICIOUS ABNORMALITY-Moderate suspicion f or malignancy (10-50% likelihood of cancer). RECOMMENDATION: Biopsy recommended. A letter with findings and recommendations will be mailed to the patient. Reading Location: [id number]
== END | disposition home or self-care (01) ==
LOC: OPBI 13:37
PROVIDERS: PCP Family Medicine Geriatric Medicine; Referring Provider Family Medicine Geriatric Medicine; Visit Provider Family Medicine Geriatric Medicine
DX: R92.1 Mammographic calcification found on diagnostic imaging of breast (principal)
CPT/HCPCS: 77061; 77065; G0279

== ENCOUNTER 2024-08-20 09:00 | Outpatient (CLI) | payer MEDICARE, SELFPAY ==
--- NOTE | 2024-08-20 10:15 | BRBX_PTH ---
PATIENT: ILIA CLAUDIO LOC: [facility] U#:[id number] AGE/SX: 74/F ROOM: RE08/20/[address]: Dr. Pearl Hopper MD : 1950 BED: DIS: 08/20/2024 SPEC #: [id number] RECD: 08/20/24 10:30 STATUS: CHEN REEdis #: [id number] PARVEZ: 08/20/24 10:[address]: Pearl Hopper DEPT: SURGICAL PATHOLOGY RECD BY: Fernando Marie ENTERED: 08/20/24 10:37 SP TYPE: BREAST BX OTHR DR: Dr. Deshawn Toney MD Tissues: A - Left breast, NOS Procedures: Immunohistochemical Stains Surgery Specimen Level IV IHC Stain ADDITIONAL HEADER OPERATION: Left breast stereo biopsy PRE-OP DIAGNOSIS: Left upper outer quadrant micro calcs, calcifiactions 3 greater than 1 > than 2 TISSUE SUBMITTED: A- Upper/outer quadrant microcalcs *calcifications in chambers 1,2,3 (mostly in 3) Ischemic Time: 15 minute Fixation Time: 9 hours MICROSCOPIC DIAGNOSIS A. Breast, left, microcalcifications, stereotactic biopsy: * Benign breast tissue with multifocal fibroadenomatoid change. * Focal microcalcification noted. * IHC for CK5/6 and p40 support the histologic impression. MICROSCOPIC DESCRIPTION Slides are reviewed. All matched controls reacted appropriately. These tests were developed and their performance characteristics determined by [facility]. They may not have been cleared or approved by the [place] Food and Drug Administration. The FDA has determined that such clearance or approval is not necessary.? The above immunohistochemical/dualISH?markers are reviewed by the Pathologist. GROSS DESCRIPTION Received fresh and subsequently placed in formalin labeled with the patient's name and date of are 6 chen-yellow lobulated soft tissue cores, 2.2-2.8 cm in length by 0.4-0.7 cm in diameter. The specimen is entirely submitted in 3 cassettes, following postoperative imaging as follows: A1: Chamber #1/#3A2: Chamber #2/#4A3: Chamber #5/#6 Cold ischemic time: 18 minutesFormalin fixation time: 56 hours, 57 minutes [place] 08/20/2024 CPT:34471,54743,[id number]
--- NOTE | 2024-08-20 11:15 | OP.PCM_ITS ---
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 Risk benefits were discussed the patient and she elected to proceed with stereotactic core biopsy with clip placement Description of procedure: Patient was brought into the mammography suite and laid prone on the stereotactic table. A timeout was completed verifying correct patient, procedure, site, specially, prior to beginning procedure. The left breast was prepped and draped in usual sterile fashion and using local anesthesia was obtained with 1% lidocaine with epi. Patient's left breast was positioned and placed into compression. Initial film showed calcifications are in the center of the compression paddle. 15? views were then taken. The calcifications were localized. The left breast was prepped draped in usual sterile fashion. An 8-gauge mammotome was set up according to the digital coordinates. The tract of the mammotome was anesthetized with local anesthesia and an incision was made with the 11 blade scalpel at the entry site. The mammotome was advanced to the prefire state. Pre-prior films were checked and verified. The mammotome was fired. Post fire films were also checked and verified. Biopsies were taken from 8:00 to 1:00. The specimen was x-rayed and all the calcifications were within the specimen. Mammotome clip was placed at the 12 o'clock position. The mammotome was removed from the breast. An additional films were taken which showed all calcifications were removed and a clip was in place. Patient did have some arterial bleeding. Pressure was held for hemostasis about 30 minutes. Once hemostasis was assured the wound was dressed with Steri-Strips and OpSite. Compression Adan wrap was also placed. The patient tolerated the procedure well and was discharged from the mammography suite good condition. Surgical Findings: SEE OPERATIVE REPORT Complications Complications: No
== END 2024-08-20 23:59 | disposition home or self-care (01) ==
PROVIDERS: PCP Family Medicine Geriatric Medicine; Referring Provider Surgery; Visit Provider Surgery
DX: D24.2 Benign neoplasm of left breast (principal); R92.0 Mammographic microcalcification found on diagnostic imaging of breast
CPT/HCPCS: 19081; 88305; 88341; 88342; A4648

== ENCOUNTER → 2024-10-08 | Outpatient (CLI) | payer MEDICARE, SELFPAY ==
[2024-10-08 10:03] LABS: Hematocrit 39.1 % (37-47); Hemoglobin 12.6 g/dL (12.0-15.0); Immature Granulocytes Count 0.010 X10^3/uL (0.0-0.0); Mean Corp Hgb Conc 32.2 g/dL (32-36); Mean Corpuscular Volume 92.9 fL (81-99); Mean Platelet Vol. 12.6 fl (6.2-12.0); NRBC Flagged by Analyzer 0 % (0-5); Platelet Count 151 K/mm3 (150-450); RBC Distribution Width CV 13.2 % (11.6-14.6); RBC Distribution Width SD 44.4 fl (35.1-43.9); Red Blood Count 4.21 M/mm3 (4.2-5.4); White Blood Count 3.7 K/mm3 (4.4-11.0)
[2024-10-08 11:57] LABS: AST(SGOT) 21 U/L (<=31); Alanine Aminotransfer ALT/SGPT 21 U/L (<=34); Albumin, Serum 4.5 g/dL (3.4-4.8); Alkaline Phosphatase 73 U/L (35-104); Anion Gap 9 (5-15); BUN 18 mg/dL (4-19); BUN/Creat Ratio 26.2 RATIO (10-20); Calcium,Total 10.1 mg/dL (7.6-11.0); Carbon Dioxide 25.3 mmol/L (21.0-32.0); Chloride 106 mmol/L (98-108); Globulin 2.2 g/dL (2.2-4.2); Glucose 123 mg/dL (70-99); Potassium 3.9 mmol/L (3.3-5.1); Vitamin D,25 Hydroxy 31.1 ng/mL (30-100)
[2024-10-08 17:38] LABS: Xtra Tube Kwok EXTRA TUBE
== END | disposition home or self-care (01) ==
LOC: POLAB3 09:37
PROVIDERS: PCP Family Medicine Geriatric Medicine; Visit Provider Family Medicine Geriatric Medicine
DX: E11.65 Type 2 diabetes mellitus with hyperglycemia (principal); R53.83 Other fatigue; E55.9 Vitamin D deficiency, unspecified
CPT/HCPCS: 36415; 80053; 82306; 84443; 85025

== ENCOUNTER → 2024-12-10 | Outpatient (CLI) | payer MEDICARE, SELFPAY ==
[2024-12-10 12:33] LABS: Hematocrit 38.1 % (37-47); Hemoglobin 12.7 g/dL (12.0-15.0); Immature Granulocytes Count 0.000 X10^3/uL (0.0-0.0); Mean Corp Hgb Conc 33.3 g/dL (32-36); Mean Corpuscular Volume 91.1 fL (81-99); Mean Platelet Vol. 12.4 fl (6.2-12.0); NRBC Flagged by Analyzer 0 % (0-5); Platelet Count 157 K/mm3 (150-450); RBC Distribution Width CV 12.7 % (11.6-14.6); RBC Distribution Width SD 42.5 fl (35.1-43.9); Red Blood Count 4.18 M/mm3 (4.2-5.4); White Blood Count 3.6 K/mm3 (4.4-11.0)
[2024-12-10 13:25] LABS: AST(SGOT) 19 U/L (<=31); Alanine Aminotransfer ALT/SGPT 24 U/L (<=34); Albumin, Serum 4.5 g/dL (3.4-4.8); Alkaline Phosphatase 84 U/L (35-104); Anion Gap 9 (5-15); BUN 19 mg/dL (4-19); BUN/Creat Ratio 28.4 RATIO (10-20); Calcium,Total 9.8 mg/dL (7.6-11.0); Carbon Dioxide 27.5 mmol/L (21.0-32.0); Chloride 104 mmol/L (98-108); Globulin 2.1 g/dL (2.2-4.2); Glucose 136 mg/dL (70-99); Potassium 4.1 mmol/L (3.3-5.1); Vitamin D,25 Hydroxy 41.7 ng/mL (30-100)
== END | disposition home or self-care (01) ==
LOC: LAB 11:53
PROVIDERS: PCP Family Medicine Geriatric Medicine; Referring Provider Family Medicine Geriatric Medicine; Visit Provider Family Medicine Geriatric Medicine
DX: E03.9 Hypothyroidism, unspecified (principal); E55.9 Vitamin D deficiency, unspecified; R53.83 Other fatigue
CPT/HCPCS: 36415; 80053; 82306; 84443; 85025